=== PATIENT | male | born 1935 | race Two or more races ===

== ENCOUNTER 2022-10-16 15:03 | Inpatient (IN) | payer MEDICARE, OTHER ==
[~2022-10-16] VITALS: Ht 167.6 cm; Wt 59.7 kg
[2022-10-16 16:02] VITALS: PULSE 76; O2SAT 93
[2022-10-16 16:07] LABS: Hematocrit 25.6 % (41.0-53.0)
[2022-10-16 16:09] LABS: Hemoglobin 8.1 g/dL (13.5-17.5); Mean Corpuscular Hemoglobin 26.9 pg (28.0-32.0); Mean Corpuscular Hgb Conc. 31.8 g/dL (32.0-36.0); Mean Corpuscular Volume 84.4 fL (80.0-100.0); Red Blood Cells 3.03 10^6/uL (4.5-5.90); White Blood Cell 4.7 10^3/uL (4.4-10.8)
[2022-10-16] MEDS ORDERED: ALBUTEROL SULF 2.5 MG/0.5ML(0.5%) NEB SOLN NEB ONE (16:30)
[2022-10-16] MEDS ORDERED: IPRATROPIUM BROM 0.5 MG/2.5ML INH SOL NEB ONE (16:30)
[2022-10-16] MEDS ORDERED: SODIUM CHLORIDE 0.9% 1,000 ML IV ONE (16:30)
[2022-10-16 16:32] LABS: Red Cell Distribution Width 23.2 % (11.8-14.3)
[2022-10-16 16:33] LABS: Band Neutrophils % (manual) 0; Basophils % (manual) 0 (0.0-2.0); Blast Cells 0; Eosinophils % (manual) 0 (0-7); Metamyelocytes % 0; Myelocytes % 0; Promyelocytes % 0; Reactive Lymphocytes 0
[2022-10-16 16:36] LABS: Calcium 8.2 mg/dL (8.5-10.1); Potassium 4.7 mmol/L (3.5-5.1)
[2022-10-16 16:40] LABS: BUN/Creatinine Ratio 11.2 (10.0-20.0); Bilirubin, Total 0.7 mg/dL (0.2-1.0); Total Protein 6.7 g/dL (6.4-8.2)
[2022-10-16 17:02] LABS: INR 1.05 (0.9-1.15); Partial Thromboplastin Time 23.3 SEC (24.5-34.5)
[2022-10-16 17:12] LABS: Anisocytosis Moderate; Lymphocytes % (manual) 20 (10.0-50.0); Monocytes % (manual) 22 (0-12); Platelet Estimate Adequate
[2022-10-16] MEDS ORDERED: LEVOTHYROXINE SODIUM 88 MCG TAB PO ONE (18:15)
[2022-10-16] MEDS ORDERED: NITROGLYCERIN 0.4 MG SL TAB SL PRN (18:45)
[2022-10-16] MEDS ORDERED: DOXYCYCLINE 100MG/250ML 250 ML IV SCH (18:45)
[2022-10-16] MEDS ORDERED: ACETAMINOPHEN 500 MG TAB PO PRN (18:45)
[2022-10-16] MEDS ORDERED: ONDANSETRON HCL 4 MG/2 ML VIAL IV PRN (18:45)
[2022-10-16] MEDS ORDERED: MORPHINE SULFATE INJ 2 MG/ml SYRG IV PRN (18:45)
[2022-10-16 19:06] VITALS: BP 132/65; PULSE 86; RESP 24; TEMP 98.3; O2SAT 99
[2022-10-16 19:14] LABS: COVID19 ANTIGEN SOFIA FIA NEGATIVE (NEGATIVE)
[2022-10-16 19:15] LABS: Urine Bacteria NONE SEEN /hpf (None Seen); Urine Blood Negative /uL (Negative); Urine Clarity Clear (Clear); Urine Color Yellow (Yellow); Urine Hyaline Cast FEW /lpf (0 - 2); Urine Protein, UAD Negative (Negative); Urine Specific Gravity 1.011 (1.001-1.035); Urine Urobilinogen Normal (Negative); Urine WBC <1 /hpf (0 - 3)
[2022-10-16 20:00] VITALS: PULSE 85; RESP 23; O2SAT 98
[2022-10-16 20:00] LABS: % Iron Saturation 4.1 % (20-55)
[2022-10-16] MEDS ORDERED: methylPREDNISolone SOD SUCC 40 MG/ML VL IV SCH (22:00)
[2022-10-16] MEDS: PANTOPRAZOLE 40 MG TAB PO SCH (23:32)
[2022-10-17] VITALS (15 sets, daily range): BP systolic 93–134; BP diastolic 61–72; PULSE 16–89; RESP 16–24; TEMP 97.3–98; O2SAT 90–100
[2022-10-17] MEDS: methylPREDNISolone SOD SUCC 125 MG/2 ML VL IV SCH ×2 (04:58→18:19)
[2022-10-17] MEDS: ALBUTEROL SULF 2.5 MG/0.5ML(0.5%) NEB SOLN NEB SCH ×3 (06:23→19:16)
[2022-10-17] MEDS: IPRATROPIUM BROM 0.5 MG/2.5ML INH SOL NEB SCH ×3 (06:24→19:16)
[2022-10-17] MEDS ORDERED: DOXYCYCLINE 100MG/250ML 250 ML IV SCH (08:10)
[2022-10-17] MEDS ORDERED: DOBUTamine 1000MCG/ML 250 ML IV SCH (09:30)
[2022-10-17] MEDS ORDERED: OPTISON 3ml Vial for INJ IV ONE (09:50)
[2022-10-17] MEDS ORDERED: CLOPIDOGREL BISULFATE 75 MG TAB PO SCH (10:00)
[2022-10-17] MEDS: CARVEDILOL 3.125 MG TAB PO SCH ×2 (10:00→23:39)
[2022-10-17] MEDS ORDERED: ASPirin 81 mg TAB PO SCH (10:00)
[2022-10-17] MEDS ORDERED: ENOXAPARIN SOD 30 MG/0.3 ML SYRINGE SC SCH (10:00)
[2022-10-17] MEDS: NICOTINE 14 MG/24HR TOPICAL PATCH TD SCH (10:50)
[2022-10-17] MEDS: PANTOPRAZOLE 40 MG TAB PO SCH ×2 (10:52→23:38)
[2022-10-17] MEDS: AMIODARONE HCL 200 MG TAB PO SCH ×2 (10:53→23:38)
[2022-10-17 11:02] LABS: Basophils # (auto) 0 10 ^3/uL (0-0.2); Eosinophils # (auto) 0 10 ^3/uL (0-0.8); Hemoglobin 7.5 g/dL (13.5-17.5); Monocytes # (auto) 0.1 10 ^3/uL (0-1.3)
[2022-10-17 11:04] LABS: Basophils % (auto) 0.4 % (0.0-2.0); Eosinophils % (auto) 0.2 % (0.0-7.0); Hematocrit 22.9 % (41.0-53.0); Lymphocytes # (auto) 0.7 10 ^3/uL (0.4-5.4); Lymphocytes % (auto) 21.5 % (10.0-50.0); Mean Corpuscular Hemoglobin 28.1 pg (28.0-32.0); Mean Corpuscular Hgb Conc. 32.7 g/dL (32.0-36.0); Monocytes % (auto) 3.9 % (0.0-12.0); Neutrophils # (auto) 2.3 10 ^3/uL (1.6-8.6); Nucleated Red Blood Cells % 0.3 %; Red Blood Cells 2.66 10^6/uL (4.5-5.90); Red Cell Distribution Width 23.1 % (11.8-14.3); White Blood Cell 3.1 10^3/uL (4.4-10.8)
[2022-10-17 11:17] LABS: Calcium 8.5 mg/dL (8.5-10.1); Potassium 5.1 mmol/L (3.5-5.1)
[2022-10-17 11:23] LABS: BUN/Creatinine Ratio 10.8 (10.0-20.0)
[2022-10-17] MEDS ORDERED: SODIUM ZIRCONIUM CYCL 10 GM PAK PO SCH (11:30)
[2022-10-17] MEDS: SODIUM FERR GLUC 62.5MG/5ML 125 MG in SODIUM CHL 0.9% 100 ML IV SCH (13:08)
[2022-10-17] MEDS ORDERED: CLOP75TA70 PO (13:33)
[2022-10-17] MEDS ORDERED: PANT40T PO (13:33)
[2022-10-17] MEDS ORDERED: LOVA20TA4 PO (13:33)
[2022-10-17] MEDS ORDERED: TERA5CAP42 PO (13:33)
[2022-10-17] MEDS ORDERED: FURO40TA4 PO (13:33)
[2022-10-17] MEDS ORDERED: AMIO200T13 PO (13:33)
[2022-10-17] MEDS ORDERED: guaiFENesin-DM 100/10mg/5ml SYR PO PRN ×2 (22:30→23:30)
[2022-10-17] MEDS: IPRATROPIUM BROM 0.5 MG/2.5ML INH SOL NEB PRN (23:01)
[2022-10-17] MEDS: ALBUTEROL SULF 2.5 MG/0.5ML(0.5%) NEB SOLN HHN PRN (23:01)
[2022-10-18] VITALS (9 sets, daily range): BP systolic 108–115; BP diastolic 56–60; PULSE 71–82; RESP 18–20; TEMP 97.7–98.2; O2SAT 93–100
[2022-10-18] MEDS: SODIUM ZIRCONIUM CYCL 10 GM PAK PO SCH ×2 (01:00→05:57)
[2022-10-18] MEDS: IPRATROPIUM BROM 0.5 MG/2.5ML INH SOL NEB PRN (03:48)
[2022-10-18] MEDS: ALBUTEROL SULF 2.5 MG/0.5ML(0.5%) NEB SOLN HHN PRN (03:48)
[2022-10-18] MEDS: methylPREDNISolone SOD SUCC 125 MG/2 ML VL IV SCH (04:45)
[2022-10-18] MEDS: ALBUTEROL SULF 2.5 MG/0.5ML(0.5%) NEB SOLN NEB SCH ×2 (06:53→12:48)
[2022-10-18] MEDS: IPRATROPIUM BROM 0.5 MG/2.5ML INH SOL NEB SCH ×2 (06:53→12:48)
[2022-10-18 07:40] LABS: Basophils # (auto) 0 10 ^3/uL (0-0.2); Eosinophils # (auto) 0 10 ^3/uL (0-0.8); Monocytes # (auto) 0.3 10 ^3/uL (0-1.3); Nucleated Red Blood Cells % 1.2 %; White Blood Cell 3.9 10^3/uL (4.4-10.8)
[2022-10-18 07:42] LABS: Basophils % (auto) 0.5 % (0.0-2.0); Eosinophils % (auto) 0.4 % (0.0-7.0); Lymphocytes # (auto) 0.7 10 ^3/uL (0.4-5.4); Lymphocytes % (auto) 16.9 % (10.0-50.0); Mean Corpuscular Hemoglobin 28.3 pg (28.0-32.0); Mean Corpuscular Volume 85.9 fL (80.0-100.0); Monocytes % (auto) 8.6 % (0.0-12.0); Neutrophils # (auto) 2.9 10 ^3/uL (1.6-8.6); Neutrophils % (auto) 73.6 % (37.0-80.0); Red Blood Cells 2.45 10^6/uL (4.5-5.90)
[2022-10-18 07:49] LABS: BUN/Creatinine Ratio 15.3 (10.0-20.0); Calcium 8.4 mg/dL (8.5-10.1); Potassium 4.9 mmol/L (3.5-5.1)
[2022-10-18 07:59] LABS: Red Cell Distribution Width 23.2 % (11.8-14.3)
[2022-10-18 08:00] LABS: Hemoglobin 6.9 g/dL (13.5-17.5)
[2022-10-18] MEDS: NICOTINE 14 MG/24HR TOPICAL PATCH TD SCH (09:55)
[2022-10-18] MEDS: PANTOPRAZOLE 40 MG TAB PO SCH (09:56)
[2022-10-18] MEDS: CARVEDILOL 3.125 MG TAB PO SCH (09:56)
[2022-10-18] MEDS: AMIODARONE HCL 200 MG TAB PO SCH (09:57)
[2022-10-18 10:41] LABS: Anisocytosis Slight; Platelet Estimate Adequate
[2022-10-18 10:42] LABS: Giant Platelets Many
[2022-10-18] MEDS ORDERED: AMIO200T13 PO (10:53)
[2022-10-18] MEDS ORDERED: ALB5IS NEB (10:53)
[2022-10-18] MEDS ORDERED: FERR-7 PO (10:53)
[2022-10-18] MEDS: SODIUM FERR GLUC 62.5MG/5ML 125 MG in SODIUM CHL 0.9% 100 ML IV SCH (11:54)
[2022-10-18] MEDS ORDERED: DOXYCYCLINE 100MG/250ML 250 ML IV SCH (12:00)
== END 2022-10-18 13:50 | disposition hospice, home (50) | DRG 191 ==
LOC: ER 15:03 → EDBD 15:03 → TELE 18:38 → TELE-WESTW 22:57
PROVIDERS: ADMIT Hospitalist; ATTEND Hospitalist
DX: J44.1 Chronic obstructive pulmonary disease with (acute) exacerbation (principal); E44.0 Moderate protein-calorie malnutrition; I42.0 Dilated cardiomyopathy; N17.9 Acute kidney failure, unspecified; I13.0 Hypertensive heart and chronic kidney disease with heart failure and stage 1 through stage 4 chronic kidney disease, or unspecified chronic kidney disease; N18.4 Chronic kidney disease, stage 4 (severe); E03.9 Hypothyroidism, unspecified; I25.5 Ischemic cardiomyopathy; Z20.822 Contact with and (suspected) exposure to COVID-19; D63.8 Anemia in other chronic diseases classified elsewhere; E78.5 Hyperlipidemia, unspecified; Z99.81 Dependence on supplemental oxygen; D50.9 Iron deficiency anemia, unspecified; F17.210 Nicotine dependence, cigarettes, uncomplicated; F32.A Depression, unspecified; I25.10 Atherosclerotic heart disease of native coronary artery without angina pectoris; I48.0 Paroxysmal atrial fibrillation; N40.0 Benign prostatic hyperplasia without lower urinary tract symptoms; Z51.5 Encounter for palliative care; Z80.3 Family history of malignant neoplasm of breast; Z82.0 Family history of epilepsy and other diseases of the nervous system; Z82.49 Family history of ischemic heart disease and other diseases of the circulatory system; Z88.0 Allergy status to penicillin; Z95.1 Presence of aortocoronary bypass graft; Z68.21 Body mass index [BMI] 21.0-21.9, adult; Z71.6 Tobacco abuse counseling; I50.9 Heart failure, unspecified
CPT/HCPCS: 36415; 71045; 76775; 78582; 80048; 80053; 80061; 81001; 82270; 83036; 83540; 83550; 83735; 83880; 84439; 84443; 84484; 85007; 85025; 85027; 85379; 85610; 85730; 86850; 86900; 86901; 86920; 87040; 87426; 93005; 93306; 93970; 94640; G0378; J3490; Q9956